=== PATIENT | male | born 1945 | race Caucasian/White ===

== ENCOUNTER 2025-03-03 16:46 | Emergency (ER) | payer MEDICARE ==
[2025-03-03] MEDS ORDERED: CEFAZOLIN 1 GM VIAL ONE (17:18)
[2025-03-03] MEDS ORDERED: Lidocaine 1% w/Epinephrine 1:200K 30 ML VIAL ONE (17:18)
[2025-03-03] MEDS ORDERED: Boostrix 0.5 ML (Tdap) VIAL (>/=7 yrs of age) ONE (17:18)
[2025-03-03] MEDS ORDERED: Bacitracin 1 PK ONE (18:05)
== END 2025-03-03 18:17 | disposition home or self-care (01) ==
LOC: CSHERS 16:46
DX: S01.81XA Laceration without foreign body of other part of head, initial encounter (principal); Z23 Encounter for immunization; Z75.3 Unavailability and inaccessibility of health-care facilities; Z55.6 Problems related to health literacy; W01.198A Fall on same level from slipping, tripping and stumbling with subsequent striking against other object, initial encounter
CPT/HCPCS: 70450; 72125; 90715; J0690; 12013; 90471; 96372